=== PATIENT | male | born 1955 | race Two or more races ===

== ENCOUNTER 2025-07-18 16:30 | Outpatient (RCR) | payer MEDICARE, SELFPAY ==
--- NOTE | 2025-07-05 13:48 | PTNOTE_ITS ---
PT OP Initial Eval Patient Information Outpatient Physical Therapy Treatment Date: 07/05/25 Visit Reasons: Low back pain Medical Diagnosis: M54.16 Treatment Dx #1: LBP with radiculopathy Start of Care: 07/05/25 Date of Onset: 3 months ago Smoking Status Smoking Status: Never smoker Initial Assessment Subjective: Pt is 69 yr old citizen of [place] speaking male who c/o LBP that runs down the R LE to the ankle. The pain worsened when he bent to lift some trays of fruit and the pain is worse in the R LE when he stands to walk and walks from car to building. He's not working. PMH: DM, HTN Pt goal: to walk further with less LBP and R LE Objective: Trunk ArOM: ? B SB 50% of normal ? Extension: 10% with pain around L4-5, L5-S1 ? Flexion: to floor with LBP ? B rotation: 60% ? TTP: moderate paraspinals L5-S1 ? Neuro: R SLR: negative Assessment: Pt presents with trunk extension sensitivity consistent with lumbar stenosis and possible DDD. Pt may benefit from skilled therapy to meet goals and has poor/fair rehab potential. Short Term and [employer] Goals 1. Ind with HEP ? 2. Improved standing tolerance to 30 minutes with <=4/10 LBP ? 3. Decreased lower paraspinal TTP from mod to min 4. Improved ambulatory tolerance to at least 30 minutes with <=3/10 LBP and no ?increase in LE ssx ? Treatment Plan 60 day POC 1. Manual therapy ? 2. Therex ? 3. Modalities as indicated, moist heat pack, ice, electrical stimulation Frequency and Duration: 1-2x a week for 3 trial visits, if progressing continued to 12 Rx's, if not, reassess Certification Dates: 07/05/25 to 09/03/25 Procedure Charges OP PT Eval Mod Complex 30 minutes: Yes
--- NOTE | 2025-07-14 12:05 | PT.ODAYNRPT ---
PT Outpatient Daily Note OP Daily Note Outpatient Physical Therapy Treatment Date: 07/14/25 Visit Reasons: Low back pain Subjective: Pt c/o minimal back pain and tingling down R LE; reports his pain has decreased since his initial PT [facility]. Objective: See F/S for therex performed Assessment: Required moderate vc's and tc's to perform PPT correctly; performs best with tc under low back. No increase in pain to LB during exercises. Advised to perform sciatic nerve glides exercise for R LE at home, pt demo'd good understanding and performance of exercise. Plan: Continue with POC Length of Time (minutes) of Treatment: 30 Minutes Procedure Charges Therapeutic Exercise 30 minutes: Yes
--- NOTE | 2025-07-18 17:38 | PT.ODAYNRPT ---
PT Outpatient Daily Note OP Daily Note Outpatient Physical Therapy Treatment Date: 07/18/25 Visit Reasons: Low back pain Subjective: Pt c/o minimal LBP w/ pain radiating down R LE. Objective: See F/S for therex performed Assessment: Unable to tolerate hooklying position post LE stretches and LTRs due to increase in LBP; exercises modified to be performed in seated position. Improved tolerance to therex in seated position; min vc's and tc's required to ensure proper form w/ exercises. Advised to continue with HEP. Plan: Continue with POC Length of Time (minutes) of Treatment: 30 Minutes Procedure Charges Therapeutic Exercise 30 minutes: Yes
== END 2025-07-26 23:59 | disposition home or self-care (01) ==
LOC: CPTX 16:30
PROVIDERS: PCP Physician Assistant Medical; Referring Provider Physician Assistant Medical; Visit Provider Physician Assistant Medical
DX: M54.16 Radiculopathy, lumbar region (principal); I10 Essential (primary) hypertension; E11.9 Type 2 diabetes mellitus without complications
CPT/HCPCS: 97110; 97162